=== PATIENT | female | born 1945 | race Caucasian/White ===

== ENCOUNTER 2020-10-31 14:20 | Emergency (ER) | payer MEDICARE ==
[2020-10-31 15:18] LABS: BASO # 0.07 (0.02-0.10); EOS % 1.8 % (1.0-5.0); HEMATOCRIT 37.5 % (37.0-47.0); HEMOGLOBIN 11.8 g/dL (12.5-16.0); LYMPH# 1.78 (1.50-4.00); MEAN CELL VOLUME 91 fl (78-100); MEAN CORPUSCULAR HEMOGLOBIN 29 pg (27-31); MEAN CORPUSCULAR HGB CONC 32 g/dL (33-37); MEAN PLATELET VOLUME 9.4 fl (7.4-10.4); MONO # 0.43 (0.20-0.80); NEU # 3.24 (1.40-6.50); PLATELET COUNT 240 K/mm3 (130-400); RED BLOOD COUNT 4.12 M/mm3 (4.10-5.30); RED CELL DISTRIBUTION WIDTH 16.2 % (11.5-14.5); WHITE BLOOD COUNT 5.6 K/mm3 (4.8-10.8)
[2020-10-31 15:28] LABS: ALBUMIN 3.2 g/dL (3.4-4.8); POTASSIUM 4.1 mmol/L (3.5-5.1)
[2020-10-31 15:29] LABS: CALCIUM 8.4 mg/dL (8.3-10.5)
[2020-10-31] MEDS ORDERED: AMIODARONE200 MG PO (15:31)
[2020-10-31 15:32] LABS: TOTAL BILIRUBIN 0.3 mg/dL (0.2-1.2)
[2020-10-31] MEDS ORDERED: KLONOPIN 0.5MG0.5 MG PO (15:32)
[2020-10-31] MEDS ORDERED: LEVOTHYROXINE0.15 MG PO (15:33)
[2020-10-31] MEDS ORDERED: ACETAMINOPHEN-H1 TA2 PO (15:33)
[2020-10-31] MEDS ORDERED: FUROSEMIDE40 MG (15:33)
[2020-10-31] MEDS ORDERED: LISINOPRIL10 MG PO (15:33)
[2020-10-31] MEDS ORDERED: ROBAXIN-750750 MG PO (15:34)
[2020-10-31] MEDS ORDERED: LOPRESSOR 550 MG/TAB PO (15:39)
[2020-10-31] MEDS ORDERED: KLOR-CON 1010 MEQ (15:40)
[2020-10-31] MEDS ORDERED: XARELTO20 MG PO (15:40)
[2020-10-31] MEDS ORDERED: PRILOSEC OTC20 MG PO (15:40)
[2020-10-31] MEDS ORDERED: TIZANIDINE HYDRO4 MG PO (15:41)
[2020-10-31] MEDS ORDERED: SERTRALINE50 MG PO (15:41)
[2020-10-31] MEDS ORDERED: MEDROL DOSEPAK4 MG PO (16:17)
[2020-10-31] MEDS ORDERED: PERCOCET 325 MG1 TA2 PO (16:20)
[2020-10-31 17:36] VITALS: BP 166/68
== END 2020-10-31 17:26 | disposition home or self-care (01) ==
LOC: ED 14:20
PROVIDERS: Nurse Practitioner Family
DX: M51.36 Other intervertebral disc degeneration, lumbar region (principal); M54.16 Radiculopathy, lumbar region; M43.10 Spondylolisthesis, site unspecified; I48.91 Unspecified atrial fibrillation; M79.7 Fibromyalgia; Z79.01 Long term (current) use of anticoagulants; E66.01 Morbid (severe) obesity due to excess calories; Z68.42 Body mass index [BMI] 45.0-49.9, adult; Z88.6 Allergy status to analgesic agent
CPT/HCPCS: J1100; J1885; J3010